=== PATIENT | female | born 1965 ===

== ENCOUNTER 2018-11-20 10:07 | Day surgery (SDC) | payer BC ==
[2018-11-17 13:09] VITALS: BMI 26.1
[2018-11-20] MEDS ORDERED: Propofol 10 mg/ml Inj (20 ML) ONE (13:23)
[2018-11-20] MEDS ORDERED: Lidocaine Hydrochloride 5 ML INJ ONE (13:50)
[2018-11-20 14:11] VITALS: TEMP 98.2
[2018-11-20 15:09] VITALS: BP 110/67; PULSE 65; RESP 12; O2SAT 99
== END 2018-11-20 15:05 | disposition home or self-care (01) ==
LOC: C.ENDO 10:07
PROVIDERS: ATTEND Internal Medicine Gastroenterology
DX: Z12.11 Encounter for screening for malignant neoplasm of colon (principal); K64.1 Second degree hemorrhoids; K57.30 Diverticulosis of large intestine without perforation or abscess without bleeding
CPT/HCPCS: 45378; J2704